=== PATIENT | male | born 1970 | race Caucasian/White ===

== ENCOUNTER 2024-03-25 20:18 | Emergency (ER) | payer OTHER, SELFPAY ==
[2024-03-25 20:24] VITALS: BP 142/81; PULSE 71; RESP 16; TEMP 36.8; O2SAT 98; BMI 26.1
--- NOTE | 2024-03-25 20:29 | ED_ITS ---
HPI - General Adult General Chief complaint: Abdominal Pain Stated complaint: Abdominal Pain Time Seen by Provider: 03/25/24 20:22 History of Present Illness HPI narrative: fw weeks of on/ off abd cramping gas like but not passing much gas. today stood at work all day and was okay, went home and laid down, within a minute pain flared up in epigastric region, took antacids and it resolved but across lower abd still gassy . normally irregular BM pattern, hx of possible intussusception 20 plus years ago. no other meds taken for pain 53-year-old man presenting to the emergency department with concern of abdominal pain. He feels bloated but not particularly gassy. Describes intermittent pain or discomfort radiating from the xiphoid area as just heard/demonstrated down the right abdomen over the last 1-2 weeks. Does admit to generally with intermittent bowel movements. History of being recommended to take Citrucel. Until he lost quite a bit of weight intentionally some years back did struggle more with heartburn/reflux but that is been less of an issue. He did take some antacids in maybe temporarily relieved this epigastric area discomfort. He has not had any fever. Is not nauseated. Did have colonoscopy in gets regular checkups with his primary care provider. On the 5 year plan for colonoscopy. Apparently he reports a 4 mm polyp being found. Had extensive workup some years back when had similar recurrent abdominal discomfort. Urine describes barium swallow? Or small-bowel follow-through? He seems to be describing though that was recommended for use then at that point was Citrucel. This typically does get his bowels moving he admits. Co-worker apparently had similarly described symptoms and ended up with a ruptured appy recommended that he not delay evaluation. Mr. Crews does endorse being a little nervous and living alone and so thought he probably should get checked out. This epigastric area discomfort was more uncomfortable knee take a deep brief been and then resolve when he breathes out. No cough or cold symptoms. No fever. Related Data Home Medications ?Medication ?Instructions ?Recorded ?Confirmed clonazepam PO ONCE PRN 03/25/24 Allergies Allergy/AdvReac Type Severity Reaction Status Date / Time doxycycline AdvReac Verified 03/25/24 20:28 Review of Systems Status of ROS: Reports: 6 or more systems reviewed and unremarkable except as noted in History and below PFSH PFSH Social History Non-prescribed substance use: denies use Exam Narrative: Exam Narrative: Pleasant. Tall. Well built. NAD. Breathing easily. Lungs appear to be clear. Heart with regular rate and rhythm. Abdomen with normal bowel sounds is soft and does not appear to be particularly tender without flank pain. No masses are appreciated. Certainly no peritoneal signs. Is well-perfused peripherally moving all extremities without difficulty. Const: Vital Signs, click to edit/add: Vital Signs - 24 hr 03/25/24 20:24 Temperature 98.3 F Pulse Rate [Pulse Oximeter] 71 Respiratory Rate 16 Blood Pressure [Le ft Upper Arm] 142/81 H Pulse Oximetry 98 Oxygen Delivery Me thod Room Air Documenting provider has reviewed patient's vital signs: yes Course Vital Signs Vital signs: Initial Vital Signs Temperature 98.3 F 03/25/24 20:24 Temperature Source Temporal Artery Scan 03/25/24 20:24 Pulse Rate 71 03/25/24 20:24 Respiratory Rate 16 03/25/24 20:24 Blood Pressure 142/81 H 03/25/24 20:24 Blood Pressure Mean 101 03/25/24 20:24 Blood Pressure Position Sitting 03/25/24 20:24 Pulse Oximetry 98 03/25/24 20:24 Oxygen Delivery Method Room Air 03/25/24 20:24 Vital Signs Temperature 98.3 F 03/25/24 20:24 Pulse Rate 71 03/25/24 20:24 Respiratory Rate 16 03/25/24 20:24 Blood Pressure 142/81 H 03/25/24 20:24 Pulse Oximetry 98 03/25/24 20:24 Oxygen Delivery Method Room Air 03/25/24 20:24 Temperature 98.3 F 03/25/24 20:24 Pulse Rate 71 03/25/24 20:24 Respiratory Rate 16 03/25/24 20:24 Blood Pressure 142/81 H 03/25/24 20:24 Pulse Oximetry 98 03/25/24 20:24 Oxygen Delivery Method Room Air 03/25/24 20:24 Medical Decision Making MDM Narrative Medical decision making narrative: Story appears inconsistent with appendicitis per his concern. I would favor constipation possible gas related discomfort. He does have a relatively good diet. This does not appear to be exclusively heartburn or reflux. Does not appear to be a bowel obstruction. Timing of colonoscopy in findings overall is reassuring for any occult process. Abdominal exam is also reassuring. Does not have surgical abdomen. Since he is had regular screenings and relatively benign findings here today with good vitals, do not think extensive workup is necessary pending worsening symptoms. Did propose abdominal x-ray to evaluate for air-fluid levels urine constipation, possibly also appendicolith. Abdominal x-ray by my read does not show any concerning air-fluid levels. There is extensive/moderate stool throughout the colon/abdomen. Did discuss these findings with Mr. Crews. Pending further developments, believe can be safely discharged home. See patient discharge plan for further discussion Medical Records Medical records reviewed: Yes I reviewed the patient's medical records Discharge Plan Discharge Clinical Impression: Abdominal fullness, Constipation, Colic, abdominal Patient Disposition: Home, Self-Care Additional Instructions: Do focus on hydration. Try to get in to 3 L of water daily. I would take MiraLax equivalent (or your Citrucel) up to 3 doses in a day and adjust to stool consistency as discussed. I would continue this treatment for at least 2 weeks. And generally supplementing your diet with a little daily Metamucil or Citrucel going forward is probably a good thing. For more immediate clean out could further drink 1/2-1 bottle of magnesium citrate and if no significant result repeating the next day. Otherwise be seen for marked increase in persistent pain, repeated vomiting, associated fever. Prescriptions: No Action clonazepam PO ONCE PRN Follow Up/Referrals: Slim Fernandez MD [Primary Care Provider] - Stand Alone Forms: [employer]) Info Instructions
--- NOTE | 2024-03-25 20:53 | CRLHL7_ITS ---
For Patients: As a result of the Century Cures Act, medical imaging exams and procedure reports are released immediately into your electronic medical record. You may view this report before your referring provider. If you have questions, please contact your health care provider. INDICATION: Abdominal fullness, epigastric right mid abdominal pain TECHNIQUE: Abdomen Pelvis radiograph 2 views COMPARISON: None FINDINGS: The sensitivity and specificity of the exam are moderately limited by the patient`s body habitus. Bowel: Moderate amount of stool is present throughout the colon which may be due to chronic constipation. The bowel gas pattern is normal without evidence of bowel obstruction. Soft tissue: No evidence of pneumoperitoneum present. No suspicious calcifications noted. Bone: Mild levoscoliosis of the lumbar spine is noted. IMPRESSION: 1. Unremarkable appearance of the visualized abdomen. Dictated by Kevin Jeffers MD @ 03/25/2024 9:22:38 PM Dictated by: Kevin Jeffers MD @ 03/25/2024 21:22:43 (Electronically Signed)
== END 2024-03-25 21:54 | disposition home or self-care (01) ==
PROVIDERS: Emergency Provider Family Medicine; PCP Family Medicine
DX: R10.84 Generalized abdominal pain (principal); K59.00 Constipation, unspecified
CPT/HCPCS: 74019; 99283; 99284